=== PATIENT | female | born 1955 | race Caucasian/White ===

== ENCOUNTER 2017-09-03 07:51 | Day surgery (SDC) | payer OTHER ==
[2017-09-03] MEDS ORDERED: TETRACAINE 0.5% OPHTH 1 DOSE AFFEYE ONE ×3 (08:18→11:41)
[2017-09-03] MEDS ORDERED: VIGAMOX 0.5% OPHTH 1 DOSE AFFEYE ONE ×5 (08:20→11:53)
[2017-09-03] MEDS ORDERED: PROLENSA OPHTH 1 DOSE AFFEYE ONE (08:32)
[2017-09-03] MEDS ORDERED: ALPHAGAN-P OPHTH 1 DOSE AFFEYE ONE (08:35)
[2017-09-03] MEDS ORDERED: MYDRIACIL OPHTH 1 DOSE AFFEYE ONE ×2 (08:36→08:40)
[2017-09-03] MEDS ORDERED: AK-DILATE 2.5% OPHTH 1 DOSE OP ONE ×2 (08:36→08:40)
[2017-09-03] MEDS ORDERED: CYCLOGYL 1% OPHTH 1 DOSE OP ONE ×2 (08:36→08:40)
[2017-09-03] MEDS ORDERED: NS 500 ML IV 500 ML IV ONE (08:40)
[2017-09-03] MEDS ORDERED: BETADINE OPHTH SOLN 5% EACHEYE ONE (11:33)
[2017-09-03] MEDS ORDERED: BSS OPHTH (PLAIN) 500 ML IR ONE (11:41)
[2017-09-03] MEDS ORDERED: ADRENALINE CHL INJ IJ ONE (11:41)
[2017-09-03] MEDS ORDERED: DUOVISC IO ONE (11:41)
[2017-09-03] MEDS ORDERED: XYLOCAINE-MPF 1% IJ ONE (11:41)
[2017-09-03 15:01] VITALS: BP 120/60
[2017-09-04] MEDS ORDERED: DIPRIVAN VIAL ONE (09:27)
[2017-09-04] MEDS ORDERED: VERSED ONE (09:27)
== END 2017-09-03 12:20 | disposition home or self-care (01) ==
LOC: SURG1 07:51
PROVIDERS: ATTEND Ophthalmology
PROC: 08RJ3JZ Replacement of Right Lens with Synthetic Substitute, Percutaneous Approach (ICD-10-PCS; principal; 2017-09-03 12:45)
PROC: 08DJ3ZZ Extraction of Right Lens, Percutaneous Approach (ICD-10-PCS; principal; 2017-09-03 12:45)
DX: H25.11 Age-related nuclear cataract, right eye (principal); H52.221 Regular astigmatism, right eye
CPT/HCPCS: A4217; J0170; J2250; J3490